=== PATIENT | female | born 1955 | race Caucasian/White ===

== ENCOUNTER 2020-07-17 00:17 | Emergency (ER) | payer SELFPAY ==
[~2020-07-17] VITALS: Ht 170.2 cm; Wt 63.6 kg
--- NOTE | 2020-07-17 00:34 | NUR ---
SAM MENSAH [phone] AT BEDSIDE
[2020-07-17 00:36] VITALS: BP_DIAS 107
[2020-07-17 00:48] LABS: BASOPHILS % (AUTO) 0.6 % (0-1); EOSINOPHILS % (AUTO) 0.5 % (0-6); HEMATOCRIT 40.7 % (35.0-45.0); HEMOGLOBIN 14.2 g/dl (12.0-16.0); LYMPHOCYTES # (AUTO) 0.6 X10'3 (1.1-4.8); LYMPHOCYTES % (AUTO) 13.1 % (21-51); MEAN CORPUSCULAR HEMOGLOBIN 37.3 PG (27.0-31.0); MEAN CORPUSCULAR HGB CONC 34.9 g/dL (33.0-36.5); MEAN CORPUSCULAR VOLUME 106.9 FL (78-98); MEAN PLATELET VOLUME 10.7 FL (7.4-10.4); MONOCYTES # (AUTO) 0.3 X10'3 (0-0.9); MONOCYTES % (AUTO) 6.3 % (2-12); NEUTROPHILS # (AUTO) 3.9 X10'3 (1.8-7.7); NEUTROPHILS % (AUTO) 79.5 % (42-75); PLATELET COUNT 74 X10'3 (140-440); RED BLOOD COUNT 3.81 X10'6 (4.20-5.60); RED CELL DISTRIBUTION WIDTH 14.6 % (11.5-14.5); WHITE BLOOD COUNT 4.8 X10'3 (4.5-11.0)
--- NOTE | 2020-07-17 00:50 | NUR ---
Kristina: [phone]
[2020-07-17 01:02] LABS: PARTIAL THROMBOPLASTIN TIME 36 SECONDS (22-32)
[2020-07-17] MEDS ORDERED: niCARDipine-NS 40mg/200ml IVPB 200 ML IV ONE (01:05)
[2020-07-17 01:06] LABS: ALANINE AMINOTRANSFERASE 98 U/L (12-78); ALBUMIN 3.1 G/DL (3.4-5.0); ALBUMIN/GLOBULIN RATIO 0.6 (1.1-1.5); ALKALINE PHOSPHATASE 202 IU/L (46-116); ANION GAP 7 (8-16); ASPARTATE AMINO TRANSFERASE 134 U/L (10-37); BILIRUBIN,TOTAL 2.3 MG/DL (0.1-1.0); BLOOD UREA NITROGEN 9 MG/DL (7-18); BUN/CREATININE RATIO 17.6 (6.6-38.0); CALCIUM 8.4 MG/DL (8.5-10.1); CHLORIDE 96 MMOL/L (99-107); CREATININE 0.51 MG/DL (0.40-0.90); GLUCOSE 170 MG/DL (70-104); POTASSIUM 3.2 MMOL/L (3.5-5.1); SODIUM 132 MMOL/L (135-145); TOTAL CARBON DIOXIDE 28.8 MMOL/L (24-32); TOTAL PROTEIN 7.9 G/DL (6.4-8.2); eGFR > 90 ML/MIN
[2020-07-17] MEDS ORDERED: levetiracetam-NS 1000mg/100ml 100 ML IV ONE (01:14)
[2020-07-17 01:16] LABS: CLARITY,URINE CLEAR (Clear); COLOR,URINE YELLOW (Yellow); GLUCOSE, URINE NEGATIVE (Neg); KETONES,URINE NEGATIVE (Neg); LEUKOCYTE ESTERASE ,URINE NEGATIVE (Neg); NITRITES, URINE NEGATIVE (Neg); OCCULT BLOOD,URINE TRACE-INTACT (Neg); PH,URINE 7.5 (4.8-8.0); PROTEIN,URINE TRACE mg/dl (Neg); UA COLLECTION TYPE STRAIGHT CATH
--- NOTE | 2020-07-17 01:17 | NUR ---
CT SCAN SHOWED BLEED, INTUBATION INDICATED: @0115 ETOMADATE 20MG ROCURONIUM 100MG MAC 3 USED, 22CM TO TEETH 7 04/02
[2020-07-17] MEDS ORDERED: propofol 1000mg/100ml bottle 100 ML IV SCH (01:20)
[2020-07-17] MEDS ORDERED: MIDAZolam 5mg/ml 2ml vial IV ONE (01:20)
[2020-07-17 01:24] VITALS: BP_SYST 100
[2020-07-17 01:24] LABS: BACTERIA,URINE 3+ /HPF (Neg); MUCUS STRANDS NONE SEEN /LPF (Neg); SQUAMOUS EPITHELIAL CELL,UR FEW /LPF (FEW); WBC,URINE NONE SEEN /HPF (0-4)
[2020-07-17 01:31] LABS: PLATELET ESTIMATE DECREASED
[2020-07-17 01:32] LABS: LARGE PLATELETS FEW
[2020-07-17] MEDS ORDERED: rocuronium 10mg/ml inj IV ONE (08:00)
[2020-07-17] MEDS ORDERED: etomidate 2mg/ml inj. ONE (08:00)
== END 2020-07-17 06:23 | disposition short-term general hospital (02) ==
LOC: ER 00:17
DX: I62.9 Nontraumatic intracranial hemorrhage, unspecified (principal); I16.1 Hypertensive emergency; I63.89 Other cerebral infarction; R51.9 Headache, unspecified; R41.82 Altered mental status, unspecified; R11.0 Nausea; F17.200 Nicotine dependence, unspecified, uncomplicated
CPT/HCPCS: 31500; 36415; 36556; 70450; 71045; 80053; 81001; 82140; 83605; 84145; 85008; 85025; 85610; 85730; 87040; 87077; 87088; 87186; 93005; 96365; 99291; J1953; J2250; J2704; 96368; 96375